=== PATIENT | male | born 1955 | race Caucasian/White ===

== ENCOUNTER 2019-07-17 22:20 | Inpatient (IN) | payer OTHER ==
[~2019-07-17] VITALS: Ht 162.6 cm; Wt 70.0 kg
[~2019-07-17 22:20] MED LIST: ASC500 PO; ASPI325T29 PO; ATOR40TA68 PO; BALS60OI TOP; BENA20TA4 PO; CLOP75TA28 PO; ERTA1VIA3 IVPB; HYDR-3671 PO; INSU100C SQ; Insulin Glargine SC; LANT3I SC; MORP10SO PO; MORP15TA92 PO; MULTI PO; NOVO3I SC; SENN-120 PO; SODI473S5 TP; VITA1CAP5 PO
[2019-07-18 00:50] VITALS: BP 134/66; PULSE 82; RESP 20
[2019-07-18] MEDS ORDERED: traMADol 50 MG TAB PO PRN (01:30)
[2019-07-18] MEDS: ACCU-CHEK XX SCH (02:00)
[2019-07-18 02:25] VITALS: Ht 162.6 cm; Wt 70.0 kg
[2019-07-18 02:27] VITALS: BP_SYST 138; BP_SYST 147; BP_DIAS 60; BP_DIAS 70; PULSE 108; PULSE 80; RESP 16; RESP 20
[2019-07-18] MEDS ORDERED: INSULIN ASPART [NOVOLOG] 3 ML PEN SC ONE (02:30)
[2019-07-18] MEDS ORDERED: GLUCOSE GEL 15 GRAM TUBE BUCCAL PRN (02:30)
[2019-07-18] MEDS ORDERED: DEXTROSE 50% 50 ML SYRINGE IV PRN ×2 (02:30)
[2019-07-18] MEDS ORDERED: GLUCOSE GEL 15 GRAM TUBE PO PRN ×2 (02:30)
[2019-07-18] MEDS ORDERED: GLUCAGON 1 MG INJ IM PRN (02:30)
[2019-07-18] MEDS ORDERED: ACETAMINOPHEN 325 MG TAB PO PRN (04:30)
[2019-07-18] MEDS ORDERED: VANCOMYCIN IV PER PHARMACY XX SCH (04:30)
[2019-07-18] MEDS ORDERED: NACL 0.9% 3 ML SYG IV SCH (04:30)
[2019-07-18] MEDS ORDERED: ONDANSETRON 4 MG INJ IV PRN (04:30)
[2019-07-18] MEDS ORDERED: ACCU-CHEK XX ONE (04:30)
[2019-07-18] MEDS ORDERED: morphine LIQ (10 MG/5 ML) CUP PO PRN (04:30)
[2019-07-18] MEDS ORDERED: HYDROCODONE/APAP (5/325) TAB PO PRN ×2 (04:30)
[2019-07-18] MEDS ORDERED: ALBUTEROL/IPRATROPIUM (NEB) 3 ML AMP HHN PRN (04:30)
[2019-07-18] MEDS: PIPER-TAZO 3.375 GM IV (PMX) 100 ML IVPB SCH ×3 (05:38→18:38)
[2019-07-18] MEDS: SOD CHLORIDE 0.9% 1,000 ML IV SCH ×3 (05:38→22:29)
[2019-07-18] MEDS: morphine (ER) 15 MG TAB PO SCH ×3 (05:39→22:21)
[2019-07-18] MEDS ORDERED: VANCOMYCIN 1.5 GM/NS 250 ML 250 ML IVPB ONE (07:00)
[2019-07-18 08:08] VITALS: BP 117/69; PULSE 77; RESP 18
[2019-07-18] MEDS: INSULIN ASPART [NOVOLOG] 3 ML PEN SC SCH ×7 (08:26→21:04)
[2019-07-18] MEDS ORDERED: NON-FORMULARY/PATIENT OWN MED ([Insulin Glargine] 20 UNITS) SC SCH (09:00)
[2019-07-18] MEDS: INSULIN GLARGINE [LANTus] (100 UNITS/ML) SYG SC SCH (09:18)
[2019-07-18] MEDS: HEPARIN 5,000 UNIT/1 ML VIAL SC SCH ×2 (09:49→20:59)
[2019-07-18] MEDS: CLOPIDOGREL 75 MG TAB PO SCH (09:49)
[2019-07-18] MEDS: ASCORBIC ACID 500 MG TAB PO SCH ×2 (09:50→20:49)
[2019-07-18] MEDS: MULTIVITAMINS THERAPEUTIC TAB PO SCH (09:50)
[2019-07-18] MEDS: BENAZEPRIL 20 MG TAB PO SCH (09:50)
[2019-07-18] MEDS: SENNA TAB PO SCH ×2 (09:50→20:49)
[2019-07-18] MEDS ORDERED: ALTEPLASE (CATHFLO) 2 MG INJ CATHETER PRN (10:00)
[2019-07-18] MEDS ORDERED: ALTEPLASE (CATHFLO) 2 MG INJ CATHETER ONE (10:00)
[2019-07-18] MEDS: BALSAM PERU/CASTOR OIL 60 GM TUBE TOP SCH ×2 (12:41→21:04)
[2019-07-18] MEDS: DAKINS 0.0125%(1/40) 473 ML SOLUTION TP SCH (13:45)
[2019-07-18 14:00] VITALS: BP 139/78; PULSE 79; RESP 17
[2019-07-18 20:00] VITALS: BP 135/72; PULSE 76; RESP 18
[2019-07-18] MEDS: ATORVASTATIN 40 MG TAB PO SCH (20:49)
[2019-07-18] MEDS: VANCOMYCIN 1 GM 250 ML IVPB SCH (22:22)
[2019-07-19] MEDS: SOD CHLORIDE 0.9% 1,000 ML IV SCH ×3 (00:01→16:37)
[2019-07-19] MEDS ORDERED: HYDROCODONE/APAP (10/325) TAB PO PRN (00:30)
[2019-07-19] MEDS: PIPER-TAZO 3.375 GM IV (PMX) 100 ML IVPB SCH ×4 (00:41→17:17)
[2019-07-19 02:00] VITALS: BP 134/72; PULSE 76; RESP 17
[2019-07-19] MEDS: ACCU-CHEK XX SCH (02:00)
[2019-07-19] MEDS: morphine (ER) 15 MG TAB PO SCH ×3 (05:48→22:12)
[2019-07-19] MEDS ORDERED: VANCOMYCIN 1 GM 250 ML IVPB SCH ×2 (07:00→10:00)
[2019-07-19] MEDS: HEPARIN 5,000 UNIT/1 ML VIAL SC SCH ×2 (08:30→20:47)
[2019-07-19] MEDS: INSULIN ASPART [NOVOLOG] 3 ML PEN SC SCH ×7 (08:30→20:46)
[2019-07-19] MEDS: CLOPIDOGREL 75 MG TAB PO SCH (08:33)
[2019-07-19] MEDS: ASCORBIC ACID 500 MG TAB PO SCH ×2 (08:34→20:47)
[2019-07-19] MEDS: MULTIVITAMINS THERAPEUTIC TAB PO SCH (08:34)
[2019-07-19] MEDS: BENAZEPRIL 20 MG TAB PO SCH (08:34)
[2019-07-19] MEDS: SENNA TAB PO SCH ×2 (08:34→20:46)
[2019-07-19] MEDS: INSULIN GLARGINE [LANTus] (100 UNITS/ML) SYG SC SCH (08:43)
[2019-07-19] MEDS: BALSAM PERU/CASTOR OIL 60 GM TUBE TOP SCH ×2 (08:44→20:49)
[2019-07-19 09:19] VITALS: BP 125/73; PULSE 69; RESP 18
[2019-07-19] MEDS: VANCOMYCIN 1 GM 250 ML IVPB SCH (10:14)
[2019-07-19] MEDS: DAKINS 0.0125%(1/40) 473 ML SOLUTION TP SCH (14:10)
[2019-07-19 14:16] VITALS: BP 134/78; PULSE 85
[2019-07-19 14:40] VITALS: BP 125/69; PULSE 74; RESP 19
[2019-07-19 20:30] VITALS: BP 148/76; PULSE 75; RESP 18
[2019-07-19] MEDS: ATORVASTATIN 40 MG TAB PO SCH (20:46)
[2019-07-20] MEDS: PIPER-TAZO 3.375 GM IV (PMX) 100 ML IVPB SCH ×2 (00:27→06:19)
[2019-07-20] MEDS: ACCU-CHEK XX SCH ×2 (00:30→22:52)
[2019-07-20 02:00] VITALS: BP 144/78; PULSE 80; RESP 18
[2019-07-20] MEDS: SOD CHLORIDE 0.9% 1,000 ML IV SCH ×3 (06:01→22:01)
[2019-07-20] MEDS: morphine (ER) 15 MG TAB PO SCH ×3 (06:20→22:01)
[2019-07-20] MEDS: INSULIN ASPART [NOVOLOG] 3 ML PEN SC SCH ×7 (08:00→20:46)
[2019-07-20] MEDS: INSULIN GLARGINE [LANTus] (100 UNITS/ML) SYG SC SCH (08:07)
[2019-07-20] MEDS: BALSAM PERU/CASTOR OIL 60 GM TUBE TOP SCH ×2 (08:08→20:51)
[2019-07-20] MEDS: CLOPIDOGREL 75 MG TAB PO SCH (08:14)
[2019-07-20] MEDS: SENNA TAB PO SCH ×2 (08:14→20:48)
[2019-07-20] MEDS: BENAZEPRIL 20 MG TAB PO SCH (08:14)
[2019-07-20] MEDS: HEPARIN 5,000 UNIT/1 ML VIAL SC SCH ×2 (08:14→20:48)
[2019-07-20] MEDS: MULTIVITAMINS THERAPEUTIC TAB PO SCH (08:14)
[2019-07-20] MEDS: ASCORBIC ACID 500 MG TAB PO SCH ×2 (08:15→20:48)
[2019-07-20 08:17] VITALS: BP 124/66; PULSE 68; RESP 17
[2019-07-20] MEDS: VANCOMYCIN 1 GM 250 ML IVPB SCH (10:16)
[2019-07-20] MEDS: DAKINS 0.0125%(1/40) 473 ML SOLUTION TP SCH (12:11)
[2019-07-20] MEDS: MEROPENEM 1 GM/50ML(PMX) 50 ML IVPB SCH (13:30)
[2019-07-20 13:31] VITALS: BP 124/69; PULSE 72; RESP 16
[2019-07-20] MEDS: POLYETHYLENE GLYCOL 17 GM PACKET PO SCH (15:53)
[2019-07-20 20:00] VITALS: BP 127/84; PULSE 77; RESP 18
[2019-07-20] MEDS: ATORVASTATIN 40 MG TAB PO SCH (20:49)
[2019-07-21] VITALS (10 sets, daily range): BP systolic 102–145; BP diastolic 61–82; PULSE 79–90; RESP 12–22
[2019-07-21] MEDS: MEROPENEM 1 GM/50ML(PMX) 50 ML IVPB SCH ×3 (00:42→21:48)
[2019-07-21] MEDS: INSULIN ASPART [NOVOLOG] 3 ML PEN SC SCH ×9 (00:48→21:00)
[2019-07-21] MEDS: morphine (ER) 15 MG TAB PO SCH ×3 (05:17→21:49)
[2019-07-21] MEDS: DEXTROSE 5%-0.9% NACL 1,000 ML IV SCH ×2 (05:30→15:30)
[2019-07-21] MEDS: BENAZEPRIL 20 MG TAB PO SCH (08:01)
[2019-07-21] MEDS: SENNA TAB PO SCH ×2 (08:02→21:49)
[2019-07-21] MEDS: HEPARIN 5,000 UNIT/1 ML VIAL SC SCH ×2 (08:02→21:51)
[2019-07-21] MEDS: CLOPIDOGREL 75 MG TAB PO SCH (08:02)
[2019-07-21] MEDS: ASCORBIC ACID 500 MG TAB PO SCH ×2 (08:02→21:49)
[2019-07-21] MEDS: POLYETHYLENE GLYCOL 17 GM PACKET PO SCH (08:02)
[2019-07-21] MEDS: MULTIVITAMINS THERAPEUTIC TAB PO SCH (08:02)
[2019-07-21] MEDS: INSULIN GLARGINE [LANTus] (100 UNITS/ML) SYG SC SCH (09:09)
[2019-07-21] MEDS: DAKINS 0.0125%(1/40) 473 ML SOLUTION TP SCH (09:14)
[2019-07-21] MEDS: BALSAM PERU/CASTOR OIL 60 GM TUBE TOP SCH ×2 (09:14→21:50)
[2019-07-21] MEDS: VANCOMYCIN 1 GM 250 ML IVPB SCH (11:35)
[2019-07-21] MEDS ORDERED: FENTAnyl 50 MCG/ML VIAL ONE (12:03)
[2019-07-21] MEDS ORDERED: PROPOFOL 20 ML ONE (12:03)
[2019-07-21] MEDS ORDERED: LIDOCAINE 100 MG SYRINGE ONE (12:03)
[2019-07-21] MEDS ORDERED: MIDAZOLAM 1 MG/ML 2 ML INJ ONE (12:04)
[2019-07-21] MEDS ORDERED: ROPIVACAINE 0.5 % 30 ML VIAL ONE (12:05)
[2019-07-21] MEDS ORDERED: TOBRAMYCIN 1.2 GM POWDER ONE (12:40)
[2019-07-21] MEDS ORDERED: VANCOMYCIN 1 GM INJ ONE (12:40)
[2019-07-21] MEDS ORDERED: GLYCOPYRROLATE 0.4 MG INJ ONE (12:51)
[2019-07-21] MEDS ORDERED: NEOSTIGMINE 3 MG/3 ML SYRINGE ONE (12:51)
[2019-07-21] MEDS ORDERED: ALBUTEROL 0.083% (NEB) 2.5 MG/3 ML AMP HHN PRN (13:00)
[2019-07-21] MEDS ORDERED: DIPHENHYDRAMINE 50 MG INJ IV PRN (13:00)
[2019-07-21] MEDS ORDERED: hydrALAzine 20 MG INJ IV PRN (13:00)
[2019-07-21] MEDS ORDERED: FENTAnyl 50 MCG/ML VIAL IV PRN ×3 (13:00)
[2019-07-21] MEDS ORDERED: OXYCODONE/ACETAMINOPHEN (5/325) TAB PO PRN ×2 (13:00)
[2019-07-21] MEDS ORDERED: ONDANSETRON 4 MG INJ IV PRN (13:00)
[2019-07-21] MEDS ORDERED: MEPERIDINE 25 MG INJ IV PRN (13:00)
[2019-07-21] MEDS ORDERED: HYDROmorphONE 1 MG/5 ML IV SYRINGE IV PRN ×3 (13:00)
[2019-07-21] MEDS ORDERED: IPRATROPIUM (NEB) 0.5 MG/2.5 ML AMP HHN PRN (13:00)
[2019-07-21] MEDS ORDERED: EPHEDrine 25 MG/5 ML SYG IV PRN (13:00)
[2019-07-21] MEDS ORDERED: LABETALOL HCL 20MG INJ IV PRN (13:00)
[2019-07-21] MEDS ORDERED: PHENYLephrine (100 MCG/ML) 10ML SYG ONE (13:02)
[2019-07-21] MEDS ORDERED: EPHEDrine 25 MG/5 ML SYG ONE (13:02)
[2019-07-21] MEDS ORDERED: MINERAL OIL LIGHT 10 ML VIAL ONE (13:22)
[2019-07-21] MEDS ORDERED: ONDANSETRON 4 MG INJ ONE (13:37)
[2019-07-21] MEDS: ATORVASTATIN 40 MG TAB PO SCH (21:49)
[2019-07-22] MEDS: INSULIN ASPART [NOVOLOG] 3 ML PEN SC SCH ×6 (01:00→17:23)
[2019-07-22] MEDS: ACCU-CHEK XX SCH (02:00)
[2019-07-22 02:54] VITALS: BP 128/71; PULSE 95; RESP 20
[2019-07-22] MEDS: morphine (ER) 15 MG TAB PO SCH ×3 (05:33→21:27)
[2019-07-22] MEDS: DEXTROSE 5%-0.9% NACL 1,000 ML IV SCH (05:35)
[2019-07-22 08:10] VITALS: BP 121/66; PULSE 97; RESP 19
[2019-07-22] MEDS: INSULIN GLARGINE [LANTus] (100 UNITS/ML) SYG SC SCH (08:17)
[2019-07-22] MEDS: ASCORBIC ACID 500 MG TAB PO SCH ×2 (08:51→21:27)
[2019-07-22] MEDS: MULTIVITAMINS THERAPEUTIC TAB PO SCH (08:51)
[2019-07-22] MEDS: CLOPIDOGREL 75 MG TAB PO SCH (08:51)
[2019-07-22] MEDS: BENAZEPRIL 20 MG TAB PO SCH (08:51)
[2019-07-22] MEDS: MEROPENEM 1 GM/50ML(PMX) 50 ML IVPB SCH ×2 (08:52→21:26)
[2019-07-22] MEDS: POLYETHYLENE GLYCOL 17 GM PACKET PO SCH (08:52)
[2019-07-22] MEDS: DAKINS 0.0125%(1/40) 473 ML SOLUTION TP SCH (09:00)
[2019-07-22] MEDS: BALSAM PERU/CASTOR OIL 60 GM TUBE TOP SCH ×2 (09:00→21:37)
[2019-07-22] MEDS ORDERED: NA POLYST SULFON 15 GM/60 ML BTL PO ONE (10:00)
[2019-07-22] MEDS: HEPARIN 5,000 UNIT/1 ML VIAL SC SCH ×2 (10:25→21:28)
[2019-07-22] MEDS: SENNA TAB PO SCH ×2 (10:26→21:26)
[2019-07-22] MEDS ORDERED: MAGNESIUM SULFATE 2 GM/50 ML 50 ML IVPB ONE (11:00)
[2019-07-22] MEDS ORDERED: INSULIN ASPART [NOVOLOG] 3 ML PEN SC SCH (11:30)
[2019-07-22] MEDS: Insulin NOVOLOG SS MODERATE Algorithm (SS with meals and bedtime) SC SCH ×3 (12:00→21:00)
[2019-07-22 14:00] VITALS: BP 125/68; PULSE 90; RESP 18
[2019-07-22 20:00] VITALS: BP 114/57; PULSE 91; RESP 18
[2019-07-22] MEDS: ATORVASTATIN 40 MG TAB PO SCH (21:27)
[2019-07-23] MEDS: ACCU-CHEK XX SCH (01:22)
[2019-07-23 02:00] VITALS: BP 133/76; PULSE 91; RESP 18
[2019-07-23] MEDS: morphine (ER) 15 MG TAB PO SCH ×3 (05:21→21:23)
[2019-07-23] MEDS: Insulin NOVOLOG SS MODERATE Algorithm (SS with meals and bedtime) SC SCH ×4 (07:59→21:00)
[2019-07-23 08:00] VITALS: BP 129/70; PULSE 85; RESP 18
[2019-07-23] MEDS: INSULIN GLARGINE [LANTus] (100 UNITS/ML) SYG SC SCH (08:01)
[2019-07-23] MEDS: INSULIN ASPART [NOVOLOG] 3 ML PEN SC SCH ×3 (08:01→17:39)
[2019-07-23] MEDS: DAKINS 0.0125%(1/40) 473 ML SOLUTION TP SCH (09:00)
[2019-07-23] MEDS: SENNA TAB PO SCH ×2 (09:12→21:23)
[2019-07-23] MEDS: MULTIVITAMINS THERAPEUTIC TAB PO SCH (09:12)
[2019-07-23] MEDS: CLOPIDOGREL 75 MG TAB PO SCH (09:12)
[2019-07-23] MEDS: POLYETHYLENE GLYCOL 17 GM PACKET PO SCH (09:12)
[2019-07-23] MEDS: MEROPENEM 1 GM/50ML(PMX) 50 ML IVPB SCH ×2 (09:12→21:24)
[2019-07-23] MEDS: BENAZEPRIL 20 MG TAB PO SCH (09:12)
[2019-07-23] MEDS: ASCORBIC ACID 500 MG TAB PO SCH ×2 (09:12→21:23)
[2019-07-23] MEDS: HEPARIN 5,000 UNIT/1 ML VIAL SC SCH ×2 (09:16→21:48)
[2019-07-23] MEDS: BALSAM PERU/CASTOR OIL 60 GM TUBE TOP SCH ×2 (09:24→21:27)
[2019-07-23 10:00] VITALS: PULSE 88
[2019-07-23] MEDS ORDERED: MAGNESIUM CITRATE 300 ML BTL PO ONE (13:00)
[2019-07-23 14:00] VITALS: BP 142/84; PULSE 86; RESP 20
[2019-07-23 20:35] VITALS: BP_SYST 137; PULSE 89; RESP 20
[2019-07-23] MEDS: ATORVASTATIN 40 MG TAB PO SCH (21:23)
[2019-07-24] MEDS: ACCU-CHEK XX SCH (02:00)
[2019-07-24 03:17] VITALS: BP 108/64; PULSE 88; RESP 20
[2019-07-24] MEDS: morphine (ER) 15 MG TAB PO SCH ×3 (05:27→21:31)
[2019-07-24] MEDS: Insulin NOVOLOG SS MODERATE Algorithm (SS with meals and bedtime) SC SCH ×4 (08:00→20:26)
[2019-07-24] MEDS: MEROPENEM 1 GM/50ML(PMX) 50 ML IVPB SCH ×2 (08:16→20:27)
[2019-07-24] MEDS: INSULIN GLARGINE [LANTus] (100 UNITS/ML) SYG SC SCH (08:17)
[2019-07-24] MEDS: HEPARIN 5,000 UNIT/1 ML VIAL SC SCH ×2 (08:17→20:31)
[2019-07-24 08:19] VITALS: BP 133/66; PULSE 69; RESP 20
[2019-07-24] MEDS: INSULIN ASPART [NOVOLOG] 3 ML PEN SC SCH ×3 (08:20→18:07)
[2019-07-24] MEDS: SENNA TAB PO SCH ×2 (08:24→20:28)
[2019-07-24] MEDS: MULTIVITAMINS THERAPEUTIC TAB PO SCH (08:24)
[2019-07-24] MEDS: ASCORBIC ACID 500 MG TAB PO SCH ×2 (08:24→20:27)
[2019-07-24] MEDS: CLOPIDOGREL 75 MG TAB PO SCH (08:24)
[2019-07-24] MEDS: POLYETHYLENE GLYCOL 17 GM PACKET PO SCH (08:25)
[2019-07-24] MEDS: BENAZEPRIL 20 MG TAB PO SCH (08:29)
[2019-07-24 15:10] VITALS: BP 128/60; PULSE 70; RESP 20
[2019-07-24] MEDS: DAKINS 0.0125%(1/40) 473 ML SOLUTION TP SCH (15:57)
[2019-07-24] MEDS: BALSAM PERU/CASTOR OIL 60 GM TUBE TOP SCH ×2 (16:06→20:32)
[2019-07-24] MEDS ORDERED: LEVALBUTEROL (NEB) 0.63 MG/3 ML AMP HHN PRN (16:30)
[2019-07-24 20:17] VITALS: BP 107/68; PULSE 71; RESP 18
[2019-07-24] MEDS: ATORVASTATIN 40 MG TAB PO SCH (20:28)
[2019-07-25] MEDS: ACCU-CHEK XX SCH (01:23)
[2019-07-25 02:00] VITALS: BP 100/63; PULSE 90; RESP 17
[2019-07-25] MEDS: morphine (ER) 15 MG TAB PO SCH ×3 (05:36→22:36)
[2019-07-25 07:40] VITALS: BP 111/62; PULSE 86; RESP 16
[2019-07-25] MEDS: Insulin NOVOLOG SS MODERATE Algorithm (SS with meals and bedtime) SC SCH ×4 (08:00→21:00)
[2019-07-25] MEDS: BENAZEPRIL 20 MG TAB PO SCH (08:11)
[2019-07-25] MEDS: CLOPIDOGREL 75 MG TAB PO SCH (08:11)
[2019-07-25] MEDS: MEROPENEM 1 GM/50ML(PMX) 50 ML IVPB SCH (08:11)
[2019-07-25] MEDS: POLYETHYLENE GLYCOL 17 GM PACKET PO SCH (08:12)
[2019-07-25] MEDS: ASCORBIC ACID 500 MG TAB PO SCH ×2 (08:12→22:36)
[2019-07-25] MEDS: MULTIVITAMINS THERAPEUTIC TAB PO SCH (08:12)
[2019-07-25] MEDS: SENNA TAB PO SCH ×2 (08:12→22:35)
[2019-07-25] MEDS: HEPARIN 5,000 UNIT/1 ML VIAL SC SCH ×2 (08:17→22:41)
[2019-07-25] MEDS: INSULIN GLARGINE [LANTus] (100 UNITS/ML) SYG SC SCH (08:18)
[2019-07-25] MEDS: INSULIN ASPART [NOVOLOG] 3 ML PEN SC SCH ×3 (08:19→17:44)
[2019-07-25] MEDS: BALSAM PERU/CASTOR OIL 60 GM TUBE TOP SCH ×2 (08:20→22:43)
[2019-07-25] MEDS: DAKINS 0.0125%(1/40) 473 ML SOLUTION TP SCH (08:23)
[2019-07-25] MEDS: ERTAPENEM SODIUM 1 GM in SOD CHLORIDE 0.9% 100 ML IVPB SCH (12:08)
[2019-07-25] MEDS ORDERED: NA POLYST SULFON 15 GM/60 ML BTL PO ONE (13:00)
[2019-07-25 13:09] VITALS: BP 109/65; PULSE 88
[2019-07-25 15:21] VITALS: BP 115/68; PULSE 80; RESP 16
[2019-07-25 20:00] VITALS: BP 113/56; PULSE 90; RESP 16
[2019-07-25] MEDS: ATORVASTATIN 40 MG TAB PO SCH (22:35)
[2019-07-26 02:00] VITALS: BP 110/58; PULSE 79; RESP 19
[2019-07-26] MEDS: ACCU-CHEK XX SCH (02:00)
[2019-07-26 05:58] VITALS: BP 105/63; PULSE 80
[2019-07-26] MEDS: morphine (ER) 15 MG TAB PO SCH ×2 (06:00→13:25)
[2019-07-26 07:45] VITALS: BP 120/70; PULSE 82; RESP 18
[2019-07-26] MEDS: Insulin NOVOLOG SS MODERATE Algorithm (SS with meals and bedtime) SC SCH ×2 (08:00→12:00)
[2019-07-26] MEDS: MULTIVITAMINS THERAPEUTIC TAB PO SCH (08:29)
[2019-07-26] MEDS: SENNA TAB PO SCH (08:29)
[2019-07-26] MEDS: ASCORBIC ACID 500 MG TAB PO SCH (08:29)
[2019-07-26] MEDS: CLOPIDOGREL 75 MG TAB PO SCH (08:29)
[2019-07-26] MEDS: BENAZEPRIL 20 MG TAB PO SCH (08:31)
[2019-07-26] MEDS: POLYETHYLENE GLYCOL 17 GM PACKET PO SCH (08:31)
[2019-07-26] MEDS: HEPARIN 5,000 UNIT/1 ML VIAL SC SCH (08:32)
[2019-07-26] MEDS: INSULIN GLARGINE [LANTus] (100 UNITS/ML) SYG SC SCH (08:33)
[2019-07-26] MEDS: INSULIN ASPART [NOVOLOG] 3 ML PEN SC SCH ×2 (08:34→12:06)
[2019-07-26] MEDS: BALSAM PERU/CASTOR OIL 60 GM TUBE TOP SCH (08:38)
[2019-07-26] MEDS: ERTAPENEM SODIUM 1 GM in SOD CHLORIDE 0.9% 100 ML IVPB SCH (12:05)
[2019-07-26] MEDS: DAKINS 0.0125%(1/40) 473 ML SOLUTION TP SCH (12:07)
[2019-07-26 14:25] VITALS: BP 127/68; PULSE 81; RESP 16
== END 2019-07-26 17:22 | disposition home health service (06) | DRG 617 ==
LOC: 5EC 07-18 00:23
PROVIDERS: ADMIT Internal Medicine; ATTEND Internal Medicine
PROC: 0Y6P0Z0 Detachment at Right 1st Toe, Complete, Open Approach (ICD-10-PCS; principal; 2019-07-18)
PROC: 0Y6R0Z0 Detachment at Right 2nd Toe, Complete, Open Approach (ICD-10-PCS; 2019-07-18)
PROC: 0HRMXK3 Replacement of Right Foot Skin with Nonautologous Tissue Substitute, Full Thickness, External Approach (ICD-10-PCS; 2019-07-18)
PROC: 0KBV0ZZ Excision of Right Foot Muscle, Open Approach (ICD-10-PCS; 2019-07-18)
DX: E10.621 Type 1 diabetes mellitus with foot ulcer (principal); I96 Gangrene, not elsewhere classified; M86.9 Osteomyelitis, unspecified; E10.52 Type 1 diabetes mellitus with diabetic peripheral angiopathy with gangrene; M86.8X7 Other osteomyelitis, ankle and foot; I70.361 Atherosclerosis of unspecified type of bypass graft(s) of the extremities with gangrene, right leg; L03.115 Cellulitis of right lower limb; E10.69 Type 1 diabetes mellitus with other specified complication; E10.42 Type 1 diabetes mellitus with diabetic polyneuropathy; Z79.4 Long term (current) use of insulin; I10 Essential (primary) hypertension; E78.5 Hyperlipidemia, unspecified; D64.9 Anemia, unspecified; Z89.512 Acquired absence of left leg below knee; Z91.14 Patient's other noncompliance with medication regimen
CPT/HCPCS: 73718; 80048; 80053; 80202; 82962; 83735; 84100; 85014; 85018; 85025; 87070; 87075; 87081; 87102; 88304; 88307; 88311; 93922; 97110; 97164; 97530; J1335; J1644; J1815; J2001; J2185; J2250; J2370; J2405; J2543; J2710; J2795; J2997; J3010; J3370; J3475; J7030; J7042; Q4104